=== PATIENT | female | born 1965 | race Caucasian/White ===

== ENCOUNTER 2017-09-29 20:26 | Emergency (ER) | payer SELFPAY ==
[~2017-09-29] VITALS: Ht 165.1 cm; Wt 90.8 kg
[2017-09-29 22:48] VITALS: BP 121/72
== END 2017-09-29 22:49 | disposition home or self-care (01) ==
LOC: EME 20:26
DX: G43.909 Migraine, unspecified, not intractable, without status migrainosus (principal); Z88.2 Allergy status to sulfonamides
CPT/HCPCS: 99281; 99285; J1200; J1885; J2765; J7030